=== PATIENT | male | born 1975 | race Caucasian/White ===

== ENCOUNTER 2023-08-20 09:09 | Emergency (ER) | payer OTHER, BC ==
[2023-08-20 09:23] VITALS: BP 132/84; PULSE 95
[2023-08-20 09:53] LABS: BASOPHILS ABSOLUTE AUTO 0.1 x10^3/uL (0.0-0.2); BASOPHILS PERCENT AUTO 0.6 % (0.2-1.2); EOSINOPHILS ABSOLUTE AUTO 0.2 x10^3/uL (0.0-0.5); EOSINOPHILS PERCENT AUTO 1.8 % (0.0-4.0); HEMATOCRIT 47.4 % (40.0-52.0); IMMATURE GRAN ABSOLUTE AUTO 0.03 x10^3/uL (0.00-0.07); LYMPHOCYTES ABSOLUTE AUTO 1.9 x10^3/uL (1.0-4.8); LYMPHOCYTES PERCENT AUTO 19.5 % (25.0-50.0); MEAN CORPUSCULAR HEMOGLOBIN 30.9 pg (26.0-32.0); MEAN CORPUSCULAR HGB CONC 33.8 g/dL (32.0-36.0); MEAN CORPUSCULAR VOLUME 91.7 fL (78.0-93.0); MONOCYTES ABSOLUTE AUTO 1.1 x10^3/uL (0.0-0.8); MONOCYTES PERCENT AUTO 11.3 % (2.0-11.0); NEUTROPHILS ABSOLUTE AUTO 6.4 x10^3/uL (1.8-7.7); NEUTROPHILS PERCENT AUTO 66.5 % (50.0-80.0); PLATELET COUNT,PLT 272 x10^3/uL (130-400); RED BLOOD CELL COUNT 5.17 x10^6/uL (4.5-6.0); WHITE BLOOD CELL COUNT,WBC 9.7 x10^3/uL (4.0-10.0)
[2023-08-20 10:09] LABS: APPEARANCE,URINE CLEAR (CLEAR); BILIRUBIN,URINE NEGATIVE (NEGATIVE); COLOR,URINE YELLOW (YELLOW); GLUCOSE,URINE NEGATIVE (NEGATIVE); KETONES,URINE NEGATIVE (NEGATIVE); LEUKOCYTE ESTERASE,URINE NEGATIVE (NEGATIVE); NITRITE,URINE NEGATIVE (NEGATIVE); OCCULT BLOOD,URINE NEGATIVE (NEGATIVE); PROTEIN,URINE NEGATIVE (NEGATIVE); UROBILINOGEN,URINE 0.2 EU/dL (0.2)
[2023-08-20 10:15] LABS: A/G RATIO 1.16; ALANINE AMINOTRANSFERASE,ALT 24 U/L (16-63); ALBUMIN 3.6 g/dL (3.4-5.0); ALKALINE PHOSPHATASE 77 U/L (46-116); ANION GAP 13.3 mmol/L (5-15); ASPARTATE AMNIOTRANSFERASE,AST 16 U/L (15-37); BILIRUBIN TOTAL 0.2 mg/dL (0.2-1.0); BLOOD UREA NITROGEN,BUN 16 mg/dL (7-18); C-REACTIVE PROTEIN 0.08 mg/dL (<=0.30); CALCIUM 9.2 mg/dL (8.5-10.1); CARBON DIOXIDE,CO2 28 mmol/L (21-32); CHLORIDE,CL 104 mmol/L (98-107); CREATININE 1.1 mg/dL (0.70-1.30); ESTIMATED GFR 83 mL/min (>=60); GLUCOSE RANDOM 86 mg/dL (70-99); MAGNESIUM 1.8 mg/dL (1.8-2.4); POTASSIUM,K 4.3 mmol/L (3.5-5.1); PROTEIN TOTAL,TP 6.7 g/dL (6.4-8.2); SODIUM,NA 141 mmol/L (136-145)
[2023-08-20] MEDS ORDERED: Ketorolac 30 MG/ML SDV IM ONE (10:22)
[2023-08-20] MEDS ORDERED: Acetaminophen 325 MG Tab PO ONE (10:25)
== END 2023-08-20 10:41 | disposition home or self-care (01) ==
LOC: VM.ED 09:09
DX: S00.83XA Contusion of other part of head, initial encounter (principal); K21.9 Gastro-esophageal reflux disease without esophagitis; J44.9 Chronic obstructive pulmonary disease, unspecified; F17.200 Nicotine dependence, unspecified, uncomplicated; Z79.899 Other long term (current) drug therapy; W17.89XA Other fall from one level to another, initial encounter
CPT/HCPCS: 36415; 70450; 80053; 81003; 83735; 84484; 85025; 86140; 93005; 93010; 99284; A9270-GY